=== PATIENT | female | born 1945 | race Two or more races ===

== ENCOUNTER 2022-10-05 07:23 | Inpatient (IN) | payer MEDICARE ==
[~2022-10-05] VITALS: Ht 152.4 cm; Wt 48.2 kg
[~2022-10-05 07:23] MED LIST: ACET-3385 PO; AMOX1TAB16 PO; CLON-595 PO; HYDR10TA31 PO; LABE100T51 PO; METF-1211 PO
[2022-10-05] MEDS ORDERED: GABA-1216 PO (07:35)
[2022-10-05] MEDS ORDERED: INSULIN SQ (07:35)
[2022-10-05] MEDS ORDERED: FAMO20 PO (07:35)
[2022-10-05] MEDS ORDERED: SODIUM CHLORIDE 0.9% 1,000 ML IV ONE ×2 (07:45→10:45)
[2022-10-05] MEDS ORDERED: ONDANSETRON HCL 4 MG/2 ML VIAL IVP ONE (07:45)
[2022-10-05] MEDS ORDERED: MORPHINE SULFATE 2 MG/ML SYRINGE IVP ONE ×2 (07:45→19:45)
[2022-10-05 08:06] LABS: BASOPHILS % (AUTO) 0.6 % (0.0-2.0); CREATININE 1.09 mg/dL (0.60-1.30); EOSINOPHILS % (AUTO) 0.2 % (1.0-6.0); HEMOGLOBIN 9.1 g/dL (12.0-16.0); LYMPHOCYTES # (AUTO) 1.1 K/uL (1.0-4.8); MEAN CORPUSCULAR HEMOGLOBIN 23.4 pg (26.0-34.0); MEAN CORPUSCULAR HGB CONC 31.2 G/dL (31.0-37.0); MEAN CORPUSCULAR VOLUME 75 fL (80-100); MONOCYTES # (AUTO) 0.3 K/uL (0.1-1.0); MONOCYTES % (AUTO) 2.2 % (2.0-9.0); NEUTROPHILS # (AUTO) 13.7 K/uL (1.8-7.7); PLATELET COUNT (AUTO) 435 K/uL (150-450); POTASSIUM 4.2 mmol/L (3.5-5.1); RED BLOOD CELL COUNT(AUTO) 3.87 MIL/uL (4.00-5.20); RED CELL DISTRIBUTION WIDTH 20.4 % (11.5-14.5)
[2022-10-05 08:13] LABS: ALBUMIN 3.7 g/dL (3.4-5.0); BILIRUBIN,TOTAL 0.3 mg/dL (0.1-1.0); TOTAL PROTEIN, SERUM 8.3 g/dL (6.4-8.2)
[2022-10-05 09:41] LABS: APPEARANCE,URINE HAZY (CLEAR); BILIRUBIN,URINE NEGATIVE (NEGATIVE); GLUCOSE, URINE (UA) NEGATIVE (NEGATIVE); KETONES,URINE NEGATIVE (NEGATIVE); LEUKOCYTE ESTERASE ,URINE LARGE (NEGATIVE); NITRATE,URINE NEGATIVE (NEGATIVE); OCCULT BLOOD,URINE TRACE (NEGATIVE); PROTEIN,URINE 300-600,SEE CONFIRM mg/dL (NEGATIVE); SPECIFIC GRAVITIY, URINE 1.017 (1.003-1.030); UROBILINOGEN,URINE <=1.0 mg/dL (<=1.0)
[2022-10-05 09:50] LABS: RBC,URINE 0-2 /HPF (0-2); SULFOSALICYLIC ACID,URINE 4+ (Negative); WBC,URINE 51-100 /HPF (0-5)
[2022-10-05 09:51] LABS: BACTERIA,URINE Few /HPF (None Seen)
[2022-10-05] MEDS ORDERED: MetroNIDAZOLE 500 MG/NACL 100 ML IV ONE (10:00)
[2022-10-05] MEDS ORDERED: PIPERACILLIN/TAZO 3.375 GM/D5W 50 ML IV ONE (10:00)
[2022-10-05] MEDS ORDERED: MORPHINE SULFATE 2 MG/ML SYRINGE IVP PRN ×2 (10:45→13:30)
[2022-10-05] MEDS ORDERED: ONDANSETRON HCL 4 MG/2 ML VIAL IVP PRN (10:45)
[2022-10-05 11:45] LABS: COVID AG,FIA SOURCE NASOPHARYNGEAL
[2022-10-05] MEDS ORDERED: BISACODYL 10 MG RECTAL RECTAL SUPPOSITORY PR PRN (13:30)
[2022-10-05] MEDS ORDERED: DEXTROSE 50%-WATER 25 GM/50 ML SYRINGE IVP PRN (13:30)
[2022-10-05] MEDS ORDERED: ZOLPIDEM TARTRATE 5 MG TABLET PO PRN (13:30)
[2022-10-05] MEDS ORDERED: MAGNESIUM HYDROXIDE SUSPENSION 30 ML UDCUP PO PRN (13:30)
[2022-10-05] MEDS: HydrALAZINE HCL 20 MG/ML VIAL IVP PRN (14:55)
[2022-10-05] MEDS: HEPARIN SODIUM,PORCINE 5,000 UNITS/ML VIAL SQ SCH ×2 (16:39→22:32)
[2022-10-05] MEDS: ONDANSETRON HCL 4 MG/2 ML VIAL IVP PRN (16:49)
[2022-10-05 18:46] VITALS: BP 161/124
[2022-10-05 20:02] VITALS: BP 217/120
[2022-10-05] MEDS ORDERED: HydrALAZINE HCL 20 MG/ML VIAL IVP ONE (20:30)
[2022-10-05] MEDS: INSULIN LISPRO 100 UNITS/ML SQ PRN (20:39)
[2022-10-05] MEDS: DOCUSATE SODIUM 100 MG CAPSULE PO SCH (21:00)
[2022-10-05 21:26] LABS: GLUCOSE,POINT OF CARE 158 MG/DL (70-110)
[2022-10-05 23:51] VITALS: BP 156/94
[2022-10-06 04:58] VITALS: BP 168/109
[2022-10-06 06:01] LABS: GLUCOMETER DEV NAME(LOC) 5S.1B; GLUCOSE,POINT OF CARE 157 MG/DL (70-110)
[2022-10-06 06:53] LABS: BASOPHILS % (AUTO) 0.2 % (0.0-2.0); EOSINOPHILS % (AUTO) 0 % (1.0-6.0); HEMATOCRIT 31.1 % (36-46); HEMOGLOBIN 9.8 g/dL (12.0-16.0); LYMPHOCYTES # (AUTO) 0.9 K/uL (1.0-4.8); LYMPHOCYTES % (AUTO) 4.8 % (22.0-44.0); MEAN CORPUSCULAR HEMOGLOBIN 24.1 pg (26.0-34.0); MEAN CORPUSCULAR HGB CONC 31.5 G/dL (31.0-37.0); MEAN CORPUSCULAR VOLUME 76 fL (80-100); MONOCYTES # (AUTO) 0.5 K/uL (0.1-1.0); MONOCYTES % (AUTO) 2.9 % (2.0-9.0); NEUTROPHILS # (AUTO) 17.1 K/uL (1.8-7.7); PLATELET COUNT (AUTO) 474 K/uL (150-450); RED BLOOD CELL COUNT(AUTO) 4.07 MIL/uL (4.00-5.20); RED CELL DISTRIBUTION WIDTH 20.8 % (11.5-14.5)
[2022-10-06 07:00] LABS: NEUTROPHILS % (AUTO) 92.1 % (40.0-70.0)
[2022-10-06 07:10] LABS: CALCIUM, TOTAL 9.7 mg/dL (8.8-10.5); CREATININE 1.02 mg/dL (0.60-1.30); POTASSIUM 4.5 mmol/L (3.5-5.1)
[2022-10-06 08:09] VITALS: BP 165/89
[2022-10-06] MEDS: HEPARIN SODIUM,PORCINE 5,000 UNITS/ML VIAL SQ SCH ×3 (08:46→23:33)
[2022-10-06] MEDS: HYDROCODONE/ACETAMINOPHEN 5-325 MG TABLET PO PRN ×3 (08:46→17:59)
[2022-10-06] MEDS: PANTOPRAZOLE SODIUM 40 MG DR TABLET PO SCH (08:46)
[2022-10-06] MEDS: DOCUSATE SODIUM 100 MG CAPSULE PO SCH ×2 (08:47→21:00)
[2022-10-06] MEDS: HydrALAZINE HCL 20 MG/ML VIAL IVP PRN ×2 (08:49→20:20)
[2022-10-06 12:38] VITALS: BP 166/93
[2022-10-06 16:08] VITALS: BP 156/108
[2022-10-06] MEDS: MORPHINE SULFATE 2 MG/ML SYRINGE IVP PRN ×2 (17:06→21:45)
[2022-10-06 19:06] LABS: GLUCOMETER DEV NAME(LOC) 5S.1B; GLUCOSE,POINT OF CARE 135 MG/DL (70-110)
[2022-10-06 19:44] VITALS: BP 184/90
[2022-10-06 20:00] VITALS: BP 172/85
[2022-10-06 21:11] LABS: GLUCOMETER DEV NAME(LOC) 5S.1B; GLUCOSE,POINT OF CARE 115 MG/DL (70-110)
[2022-10-07 00:02] VITALS: BP 172/85
[2022-10-07] MEDS: MORPHINE SULFATE 2 MG/ML SYRINGE IVP PRN ×3 (02:44→20:15)
[2022-10-07] MEDS: HydrALAZINE HCL 20 MG/ML VIAL IVP PRN ×3 (05:16→17:38)
[2022-10-07 05:18] VITALS: BP 190/93
[2022-10-07 06:34] LABS: BASOPHILS % (AUTO) 0.7 % (0.0-2.0); EOSINOPHILS % (AUTO) 0 % (1.0-6.0); HEMOGLOBIN 9.6 g/dL (12.0-16.0); LYMPHOCYTES # (AUTO) 1.7 K/uL (1.0-4.8); LYMPHOCYTES % (AUTO) 12.6 % (22.0-44.0); MEAN CORPUSCULAR HEMOGLOBIN 23.5 pg (26.0-34.0); MEAN CORPUSCULAR HGB CONC 30.9 G/dL (31.0-37.0); MEAN CORPUSCULAR VOLUME 76 fL (80-100); MONOCYTES # (AUTO) 0.5 K/uL (0.1-1.0); MONOCYTES % (AUTO) 4.1 % (2.0-9.0); NEUTROPHILS # (AUTO) 10.9 K/uL (1.8-7.7); NEUTROPHILS % (AUTO) 82.6 % (40.0-70.0); PLATELET COUNT (AUTO) 474 K/uL (150-450); RED BLOOD CELL COUNT(AUTO) 4.07 MIL/uL (4.00-5.20); RED CELL DISTRIBUTION WIDTH 20.7 % (11.5-14.5)
[2022-10-07 07:00] LABS: CALCIUM, TOTAL 9.4 mg/dL (8.8-10.5); CREATININE 1.33 mg/dL (0.60-1.30); POTASSIUM 3.8 mmol/L (3.5-5.1)
[2022-10-07 07:01] LABS: GLUCOMETER DEV NAME(LOC) 5S.1B; GLUCOSE,POINT OF CARE 124 MG/DL (70-110)
[2022-10-07 07:54] VITALS: BP 155/82
[2022-10-07] MEDS: HEPARIN SODIUM,PORCINE 5,000 UNITS/ML VIAL SQ SCH ×2 (08:11→15:24)
[2022-10-07] MEDS: PANTOPRAZOLE SODIUM 40 MG DR TABLET PO SCH (08:12)
[2022-10-07] MEDS: DOCUSATE SODIUM 100 MG CAPSULE PO SCH (08:12)
[2022-10-07] MEDS ORDERED: SODIUM CHLORIDE 0.9% 1,000 ML IV ONE (10:45)
[2022-10-07] MEDS ORDERED: BISACODYL 10 MG RECTAL RECTAL SUPPOSITORY PR SCH (10:45)
[2022-10-07 11:16] VITALS: BP 195/99
[2022-10-07 11:36] LABS: GLUCOMETER DEV NAME(LOC) 5N.1C; GLUCOSE,POINT OF CARE 116 MG/DL (70-110)
[2022-10-07] MEDS: LABETALOL HCL 100 MG TABLET PO SCH ×2 (13:50→20:14)
[2022-10-07 15:10] VITALS: BP 172/97
[2022-10-07] MEDS ORDERED: AmLODIPine BESYLATE 10 MG TABLET PO ONE (18:00)
[2022-10-07 20:01] LABS: GLUCOMETER DEV NAME(LOC) 5N.1C; GLUCOSE,POINT OF CARE 110 MG/DL (70-110)
[2022-10-07 20:11] LABS: GLUCOMETER DEV NAME(LOC) 5N.1C; GLUCOSE,POINT OF CARE 212 MG/DL (70-110)
[2022-10-07 20:19] VITALS: BP 176/79
[2022-10-08 00:13] VITALS: BP 155/86
[2022-10-08] MEDS: HEPARIN SODIUM,PORCINE 5,000 UNITS/ML VIAL SQ SCH ×3 (00:22→16:00)
[2022-10-08 04:38] VITALS: BP 167/84
[2022-10-08 07:20] LABS: BASOPHILS % (AUTO) 0.2 % (0.0-2.0); EOSINOPHILS % (AUTO) 0.5 % (1.0-6.0); HEMOGLOBIN 8.7 g/dL (12.0-16.0); LYMPHOCYTES # (AUTO) 1.2 K/uL (1.0-4.8); MEAN CORPUSCULAR HEMOGLOBIN 23.3 pg (26.0-34.0); MEAN CORPUSCULAR HGB CONC 30.9 G/dL (31.0-37.0); MEAN CORPUSCULAR VOLUME 75 fL (80-100); MONOCYTES # (AUTO) 0.7 K/uL (0.1-1.0); MONOCYTES % (AUTO) 5.8 % (2.0-9.0); NEUTROPHILS % (AUTO) 83.5 % (40.0-70.0); PLATELET COUNT (AUTO) 442 K/uL (150-450); RED BLOOD CELL COUNT(AUTO) 3.72 MIL/uL (4.00-5.20); RED CELL DISTRIBUTION WIDTH 20.5 % (11.5-14.5)
[2022-10-08 07:37] VITALS: BP 166/92
[2022-10-08 07:37] LABS: CREATININE 1.21 mg/dL (0.60-1.30); POTASSIUM 3.1 mmol/L (3.5-5.1)
[2022-10-08] MEDS: PANTOPRAZOLE SODIUM 40 MG DR TABLET PO SCH (09:23)
[2022-10-08] MEDS: LABETALOL HCL 100 MG TABLET PO SCH ×2 (09:23→21:57)
[2022-10-08] MEDS: MORPHINE SULFATE 2 MG/ML SYRINGE IVP PRN (11:10)
[2022-10-08] MEDS: HydrALAZINE HCL 20 MG/ML VIAL IVP PRN (11:11)
[2022-10-08 11:27] VITALS: BP 191/94
[2022-10-08] MEDS: INSULIN LISPRO 100 UNITS/ML SQ PRN ×2 (11:53→18:19)
[2022-10-08 15:26] VITALS: BP 166/82
[2022-10-08 16:21] LABS: CALCIUM, TOTAL 9.5 mg/dL (8.8-10.5); CREATININE 1.21 mg/dL (0.60-1.30); POTASSIUM 3.3 mmol/L (3.5-5.1)
[2022-10-08] MEDS ORDERED: POTASSIUM CHLORIDE 10% 40 MEQ/30 ML LIQUID UDCUP PO ONE (18:45)
[2022-10-08] MEDS: HYDROCODONE/ACETAMINOPHEN 5-325 MG TABLET PO PRN (19:58)
[2022-10-08 20:20] VITALS: BP 233/113
[2022-10-08 20:26] LABS: GLUCOMETER DEV NAME(LOC) 5N.1C; GLUCOSE,POINT OF CARE 178 MG/DL (70-110)
[2022-10-08 20:26] LABS: GLUCOMETER DEV NAME(LOC) 5N.1C; GLUCOSE,POINT OF CARE 231 MG/DL (70-110)
[2022-10-08 20:26] LABS: GLUCOMETER DEV NAME(LOC) 5N.1C; GLUCOSE,POINT OF CARE 144 MG/DL (70-110)
[2022-10-08] MEDS ORDERED: NITROGLYCERIN 2% (1 GM=INCH) OINTMENT PACKET TP PRN (22:15)
[2022-10-08 22:41] LABS: GLUCOMETER DEV NAME(LOC) 5N.1C; GLUCOSE,POINT OF CARE 135 MG/DL (70-110)
[2022-10-09] VITALS (7 sets, daily range): BP systolic 141–200; BP diastolic 63–101
[2022-10-09] MEDS: HEPARIN SODIUM,PORCINE 5,000 UNITS/ML VIAL SQ SCH ×3 (00:29→16:29)
[2022-10-09] MEDS: HYDROCODONE/ACETAMINOPHEN 5-325 MG TABLET PO PRN ×3 (00:37→14:48)
[2022-10-09] MEDS: HydrALAZINE HCL 20 MG/ML VIAL IVP PRN (04:58)
[2022-10-09] MEDS: ONDANSETRON HCL 4 MG/2 ML VIAL IVP PRN (08:15)
[2022-10-09] MEDS: LABETALOL HCL 100 MG TABLET PO SCH ×3 (08:16→21:15)
[2022-10-09] MEDS: PANTOPRAZOLE SODIUM 40 MG DR TABLET PO SCH (08:16)
[2022-10-09] MEDS: MORPHINE SULFATE 2 MG/ML SYRINGE IVP PRN ×2 (08:16→21:32)
[2022-10-09 10:34] LABS: CALCIUM, TOTAL 8.8 mg/dL (8.8-10.5); CREATININE 1.34 mg/dL (0.60-1.30); POTASSIUM 4.1 mmol/L (3.5-5.1)
[2022-10-09] MEDS ORDERED: METOCLOPRAMIDE HCL 5 MG/ML 2 ML VIAL IVP PRN (11:30)
[2022-10-09] MEDS ORDERED: SODIUM CHLORIDE 0.9% 1,000 ML IV ONE (12:15)
[2022-10-09 22:41] LABS: GLUCOMETER DEV NAME(LOC) 5S.1B; GLUCOSE,POINT OF CARE 141 MG/DL (70-110)
[2022-10-10 00:06] VITALS: BP 157/77
[2022-10-10] MEDS: HydrALAZINE HCL 20 MG/ML VIAL IVP PRN ×2 (04:16→08:39)
[2022-10-10 04:42] VITALS: BP 171/78
[2022-10-10 08:15] VITALS: BP 169/74
[2022-10-10] MEDS: LABETALOL HCL 100 MG TABLET PO SCH ×2 (08:38→20:18)
[2022-10-10] MEDS: PANTOPRAZOLE SODIUM 40 MG DR TABLET PO SCH (08:39)
[2022-10-10] MEDS: ClonazePAM 1 MG TABLET PO SCH (08:39)
[2022-10-10] MEDS: HEPARIN SODIUM,PORCINE 5,000 UNITS/ML VIAL SQ SCH ×3 (08:39→15:44)
[2022-10-10 12:11] VITALS: BP 148/73
[2022-10-10] MEDS: MORPHINE SULFATE 2 MG/ML SYRINGE IVP PRN ×2 (14:24→18:10)
[2022-10-10 15:04] VITALS: BP 155/76
[2022-10-10 19:51] VITALS: BP 169/84
[2022-10-10 22:31] LABS: GLUCOMETER DEV NAME(LOC) 5N.1C; GLUCOSE,POINT OF CARE 92 MG/DL (70-110)
[2022-10-11] VITALS (7 sets, daily range): BP systolic 162–184; BP diastolic 76–93
[2022-10-11] MEDS: MORPHINE SULFATE 2 MG/ML SYRINGE IVP PRN ×3 (00:01→14:19)
[2022-10-11] MEDS: HEPARIN SODIUM,PORCINE 5,000 UNITS/ML VIAL SQ SCH ×4 (00:01→23:24)
[2022-10-11 00:26] LABS: GLUCOMETER DEV NAME(LOC) 5N.1C; GLUCOSE,POINT OF CARE 94 MG/DL (70-110)
[2022-10-11] MEDS: PANTOPRAZOLE SODIUM 40 MG DR TABLET PO SCH (08:41)
[2022-10-11] MEDS: LABETALOL HCL 100 MG TABLET PO SCH ×2 (08:42→20:12)
[2022-10-11] MEDS: ClonazePAM 1 MG TABLET PO SCH (08:42)
[2022-10-11] MEDS ORDERED: MINERAL OIL 133 ML ENEMA PR ONE (10:30)
[2022-10-11] MEDS: HydrALAZINE HCL 20 MG/ML VIAL IVP PRN ×3 (11:03→23:24)
[2022-10-11 12:01] LABS: GLUCOMETER DEV NAME(LOC) 5S.1B; GLUCOSE,POINT OF CARE 90 MG/DL (70-110)
[2022-10-11] MEDS: INSULIN LISPRO 100 UNITS/ML SQ PRN (20:15)
[2022-10-11 20:21] LABS: GLUCOMETER DEV NAME(LOC) 5N.1C; GLUCOSE,POINT OF CARE 213 MG/DL (70-110)
[2022-10-11] MEDS: ACETAMINOPHEN 325 MG TABLET PO PRN (23:25)
[2022-10-12 00:29] VITALS: BP 141/68
[2022-10-12 04:40] VITALS: BP 138/67
[2022-10-12] MEDS: MORPHINE SULFATE 2 MG/ML SYRINGE IVP PRN ×2 (05:38→21:17)
[2022-10-12 05:51] LABS: GLUCOMETER DEV NAME(LOC) 5S.1B; GLUCOSE,POINT OF CARE 116 MG/DL (70-110)
[2022-10-12 08:00] VITALS: BP 188/97
[2022-10-12] MEDS: HEPARIN SODIUM,PORCINE 5,000 UNITS/ML VIAL SQ SCH ×3 (08:00→23:30)
[2022-10-12] MEDS: ClonazePAM 1 MG TABLET PO SCH (09:00)
[2022-10-12] MEDS: PANTOPRAZOLE SODIUM 40 MG DR TABLET PO SCH (09:00)
[2022-10-12] MEDS: LABETALOL HCL 100 MG TABLET PO SCH ×2 (09:00→21:16)
[2022-10-12 09:11] LABS: BASOPHILS % (AUTO) 0.4 % (0.0-2.0); HEMATOCRIT 29.4 % (36-46); LYMPHOCYTES # (AUTO) 1.4 K/uL (1.0-4.8); LYMPHOCYTES % (AUTO) 13.1 % (22.0-44.0); MEAN CORPUSCULAR HEMOGLOBIN 23.5 pg (26.0-34.0); MEAN CORPUSCULAR HGB CONC 30.7 G/dL (31.0-37.0); MEAN CORPUSCULAR VOLUME 77 fL (80-100); MONOCYTES # (AUTO) 0.7 K/uL (0.1-1.0); MONOCYTES % (AUTO) 6.7 % (2.0-9.0); NEUTROPHILS # (AUTO) 8.5 K/uL (1.8-7.7); NEUTROPHILS % (AUTO) 77.8 % (40.0-70.0); PLATELET COUNT (AUTO) 376 K/uL (150-450); RED BLOOD CELL COUNT(AUTO) 3.84 MIL/uL (4.00-5.20)
[2022-10-12] MEDS: HydrALAZINE HCL 20 MG/ML VIAL IVP PRN (09:15)
[2022-10-12 09:20] LABS: CALCIUM, TOTAL 9.5 mg/dL (8.8-10.5); CREATININE 1.05 mg/dL (0.60-1.30); POTASSIUM 4.2 mmol/L (3.5-5.1)
[2022-10-12] MEDS ORDERED: METO5TAB95 PO (10:11)
[2022-10-12] MEDS ORDERED: BISA10SU11 PR (10:11)
[2022-10-12 11:20] VITALS: BP 171/100
[2022-10-12] MEDS ORDERED: MINERAL OIL 133 ML ENEMA PR ONE (12:00)
[2022-10-12] MEDS ORDERED: LACTULOSE 20 GM/30 ML SOLUTION UDCUP PO PRN (12:00)
[2022-10-12 14:21] LABS: GLUCOMETER DEV NAME(LOC) 5S.1B; GLUCOSE,POINT OF CARE 131 MG/DL (70-110)
[2022-10-12] MEDS ORDERED: LEVO-72 PO (14:37)
[2022-10-12] MEDS ORDERED: METR500 PO (14:37)
[2022-10-12 15:33] VITALS: BP 144/83
[2022-10-12 19:56] LABS: GLUCOMETER DEV NAME(LOC) 5N.1C; GLUCOSE,POINT OF CARE 133 MG/DL (70-110)
[2022-10-12 20:38] VITALS: BP 178/89
[2022-10-12] MEDS ORDERED: RINGERS SOLUTION,LACTATED 1,000 ML IV ONE (23:00)
[2022-10-13 00:11] LABS: GLUCOMETER DEV NAME(LOC) 5N.1C; GLUCOSE,POINT OF CARE 145 MG/DL (70-110)
[2022-10-13 04:28] VITALS: BP 177/84
[2022-10-13] MEDS: HydrALAZINE HCL 20 MG/ML VIAL IVP PRN (04:47)
[2022-10-13] MEDS: INSULIN LISPRO 100 UNITS/ML SQ PRN (06:12)
[2022-10-13 07:50] VITALS: BP 145/86
[2022-10-13] MEDS: ClonazePAM 1 MG TABLET PO SCH (08:17)
[2022-10-13] MEDS: HEPARIN SODIUM,PORCINE 5,000 UNITS/ML VIAL SQ SCH ×2 (08:17→16:35)
[2022-10-13] MEDS: LABETALOL HCL 100 MG TABLET PO SCH ×2 (08:17→21:19)
[2022-10-13] MEDS: HYDROCODONE/ACETAMINOPHEN 5-325 MG TABLET PO PRN (08:17)
[2022-10-13] MEDS: PANTOPRAZOLE SODIUM 40 MG DR TABLET PO SCH (08:17)
[2022-10-13 11:34] VITALS: BP 188/92
[2022-10-13] MEDS ORDERED: HydrALAZINE HCL 10 MG TABLET PO ONE (12:30)
[2022-10-13] MEDS: SENNOSIDES 8.6 MG TABLET PO ONE ×2 (12:30→16:40)
[2022-10-13] MEDS: METOCLOPRAMIDE HCL 5 MG/ML 2 ML VIAL IVP SCH ×2 (13:30→17:00)
[2022-10-13 15:10] VITALS: BP 149/75
[2022-10-13] MEDS: BISACODYL 10 MG RECTAL RECTAL SUPPOSITORY PR SCH (16:37)
[2022-10-13] MEDS: SIMETHICONE 80 MG CHEWABLE TABLET CHEW SCH ×2 (16:38→21:19)
[2022-10-13 20:28] VITALS: BP 150/80
[2022-10-13 22:31] LABS: GLUCOMETER DEV NAME(LOC) 5S.1B; GLUCOSE,POINT OF CARE 124 MG/DL (70-110)
[2022-10-13 22:31] LABS: GLUCOMETER DEV NAME(LOC) 5S.1B; GLUCOSE,POINT OF CARE 164 MG/DL (70-110)
[2022-10-13 22:31] LABS: GLUCOMETER DEV NAME(LOC) 5S.1B; GLUCOSE,POINT OF CARE 127 MG/DL (70-110)
[2022-10-13 22:31] LABS: GLUCOMETER DEV NAME(LOC) 5S.1B; GLUCOSE,POINT OF CARE 193 MG/DL (70-110)
[2022-10-13 23:48] VITALS: BP 151/75
[2022-10-14] MEDS: HEPARIN SODIUM,PORCINE 5,000 UNITS/ML VIAL SQ SCH ×4 (00:09→23:50)
[2022-10-14] MEDS: METOCLOPRAMIDE HCL 5 MG/ML 2 ML VIAL IVP SCH ×5 (00:09→23:50)
[2022-10-14 05:10] VITALS: BP 152/74
[2022-10-14 07:06] LABS: ALBUMIN 2.8 g/dL (3.4-5.0); BILIRUBIN,TOTAL 0.3 mg/dL (0.1-1.0); CREATININE 1.14 mg/dL (0.60-1.30); TOTAL PROTEIN, SERUM 6.8 g/dL (6.4-8.2)
[2022-10-14 07:17] LABS: CALCIUM, TOTAL 9.1 mg/dL (8.8-10.5)
[2022-10-14 07:46] LABS: GLUCOMETER DEV NAME(LOC) 5S.1B; GLUCOSE,POINT OF CARE 117 MG/DL (70-110)
[2022-10-14 09:00] VITALS: BP 163/66
[2022-10-14] MEDS: PANTOPRAZOLE SODIUM 40 MG DR TABLET PO SCH (09:14)
[2022-10-14] MEDS: SIMETHICONE 80 MG CHEWABLE TABLET CHEW SCH ×4 (09:14→20:56)
[2022-10-14] MEDS: ClonazePAM 1 MG TABLET PO SCH (09:14)
[2022-10-14] MEDS: LABETALOL HCL 100 MG TABLET PO SCH ×2 (09:17→20:56)
[2022-10-14] MEDS: BISACODYL 10 MG RECTAL RECTAL SUPPOSITORY PR SCH (09:17)
[2022-10-14] MEDS ORDERED: LANSOPRAZOLE 15 MG SOLUBLE TABLET NG SCH (10:00)
[2022-10-14 11:56] VITALS: BP 169/81
[2022-10-14 12:26] LABS: GLUCOMETER DEV NAME(LOC) 5S.1B; GLUCOSE,POINT OF CARE 137 MG/DL (70-110)
[2022-10-14 17:04] VITALS: BP 165/83
[2022-10-14 18:52] LABS: GLUCOMETER DEV NAME(LOC) 5N.1C; GLUCOSE,POINT OF CARE 118 MG/DL (70-110)
[2022-10-14 19:52] VITALS: BP 154/79
[2022-10-14] MEDS: HYDROCODONE/ACETAMINOPHEN 5-325 MG TABLET PO PRN (20:56)
[2022-10-14 23:22] LABS: GLUCOMETER DEV NAME(LOC) 5N.1C; GLUCOSE,POINT OF CARE 123 MG/DL (70-110)
[2022-10-14 23:32] VITALS: BP 133/64
[2022-10-15 04:24] VITALS: BP 155/81
[2022-10-15] MEDS: METOCLOPRAMIDE HCL 5 MG/ML 2 ML VIAL IVP SCH (06:10)
[2022-10-15 07:17] VITALS: BP 152/78
[2022-10-15] MEDS: PANTOPRAZOLE SODIUM 40 MG/VIAL IVP SCH (08:58)
[2022-10-15] MEDS: BISACODYL 10 MG RECTAL RECTAL SUPPOSITORY PR SCH (08:58)
[2022-10-15] MEDS: SIMETHICONE 80 MG CHEWABLE TABLET CHEW SCH ×4 (08:58→21:22)
[2022-10-15] MEDS: LABETALOL HCL 100 MG TABLET PO SCH ×2 (08:59→21:22)
[2022-10-15] MEDS: ClonazePAM 1 MG TABLET PO SCH (08:59)
[2022-10-15] MEDS: HEPARIN SODIUM,PORCINE 5,000 UNITS/ML VIAL SQ SCH ×3 (08:59→23:06)
[2022-10-15 10:51] LABS: GLUCOMETER DEV NAME(LOC) 5N.1C; GLUCOSE,POINT OF CARE 90 MG/DL (70-110)
[2022-10-15 11:35] VITALS: BP 148/75
[2022-10-15 14:49] VITALS: BP 168/79
[2022-10-15 17:16] LABS: GLUCOMETER DEV NAME(LOC) 5S.1B; GLUCOSE,POINT OF CARE 119 MG/DL (70-110)
[2022-10-15 20:03] VITALS: BP 172/80
[2022-10-15 23:56] VITALS: BP 164/72
[2022-10-16 04:55] VITALS: BP 161/66
[2022-10-16 07:39] VITALS: BP 149/70
[2022-10-16] MEDS: HEPARIN SODIUM,PORCINE 5,000 UNITS/ML VIAL SQ SCH ×2 (08:35→16:31)
[2022-10-16] MEDS: ClonazePAM 1 MG TABLET PO SCH (08:38)
[2022-10-16] MEDS: LABETALOL HCL 100 MG TABLET PO SCH ×2 (08:42→20:41)
[2022-10-16] MEDS: SIMETHICONE 80 MG CHEWABLE TABLET CHEW SCH ×4 (08:43→20:41)
[2022-10-16] MEDS: PANTOPRAZOLE SODIUM 40 MG/VIAL IVP SCH (08:43)
[2022-10-16 08:51] LABS: GLUCOMETER DEV NAME(LOC) 5N.1C; GLUCOSE,POINT OF CARE 135 MG/DL (70-110)
[2022-10-16 08:51] LABS: GLUCOMETER DEV NAME(LOC) 5S.1B; GLUCOSE,POINT OF CARE 128 MG/DL (70-110)
[2022-10-16] MEDS: BISACODYL 10 MG RECTAL RECTAL SUPPOSITORY PR SCH (08:59)
[2022-10-16 11:01] VITALS: BP 144/71
[2022-10-16] MEDS: INSULIN LISPRO 100 UNITS/ML SQ PRN ×2 (12:04→17:47)
[2022-10-16 15:23] VITALS: BP 140/75
[2022-10-16 20:35] VITALS: BP 135/77
[2022-10-16 22:16] LABS: GLUCOMETER DEV NAME(LOC) 5N.1C; GLUCOSE,POINT OF CARE 153 MG/DL (70-110)
[2022-10-17] VITALS (8 sets, daily range): BP systolic 124–225; BP diastolic 60–107
[2022-10-17] MEDS: HEPARIN SODIUM,PORCINE 5,000 UNITS/ML VIAL SQ SCH ×4 (00:08→23:37)
[2022-10-17 06:21] LABS: GLUCOMETER DEV NAME(LOC) 5S.1B; GLUCOSE,POINT OF CARE 149 MG/DL (70-110)
[2022-10-17] MEDS: ClonazePAM 1 MG TABLET PO SCH (08:56)
[2022-10-17] MEDS: PANTOPRAZOLE SODIUM 40 MG/VIAL IVP SCH (08:56)
[2022-10-17] MEDS: LABETALOL HCL 100 MG TABLET PO SCH ×2 (08:57→20:18)
[2022-10-17] MEDS: SIMETHICONE 80 MG CHEWABLE TABLET CHEW SCH ×4 (08:57→20:15)
[2022-10-17] MEDS: BISACODYL 10 MG RECTAL RECTAL SUPPOSITORY PR SCH (09:00)
[2022-10-17] MEDS: ACETAMINOPHEN 325 MG TABLET PO PRN (11:36)
[2022-10-17] MEDS: INSULIN LISPRO 100 UNITS/ML SQ PRN ×2 (12:18→21:26)
[2022-10-17] MEDS: MORPHINE SULFATE 2 MG/ML SYRINGE IVP PRN ×2 (14:33→19:40)
[2022-10-17] MEDS: HYDROCODONE/ACETAMINOPHEN 5-325 MG TABLET PO PRN (15:26)
[2022-10-17] MEDS: HydrALAZINE HCL 20 MG/ML VIAL IVP PRN (15:38)
[2022-10-17] MEDS: ONDANSETRON HCL 4 MG/2 ML VIAL IVP PRN (17:27)
[2022-10-17] MEDS ORDERED: AmLODIPine BESYLATE 10 MG TABLET PO ONE (17:30)
[2022-10-17 22:26] LABS: GLUCOMETER DEV NAME(LOC) 5S.1B; GLUCOSE,POINT OF CARE 206 MG/DL (70-110)
[2022-10-17 22:26] LABS: GLUCOMETER DEV NAME(LOC) 5N.1C; GLUCOSE,POINT OF CARE 160 MG/DL (70-110)
[2022-10-17 22:26] LABS: GLUCOMETER DEV NAME(LOC) 5N.1C; GLUCOSE,POINT OF CARE 201 MG/DL (70-110)
[2022-10-18 00:07] VITALS: BP 116/70
[2022-10-18 04:59] VITALS: BP 132/70
[2022-10-18 06:58] LABS: BASOPHILS % (AUTO) 0.4 % (0.0-2.0); EOSINOPHILS % (AUTO) 1.5 % (1.0-6.0); HEMATOCRIT 28.1 % (36-46); HEMOGLOBIN 8.9 g/dL (12.0-16.0); LYMPHOCYTES # (AUTO) 1.9 K/uL (1.0-4.8); MEAN CORPUSCULAR HEMOGLOBIN 24.2 pg (26.0-34.0); MEAN CORPUSCULAR HGB CONC 31.8 G/dL (31.0-37.0); MEAN CORPUSCULAR VOLUME 76 fL (80-100); MONOCYTES # (AUTO) 0.6 K/uL (0.1-1.0); MONOCYTES % (AUTO) 6.6 % (2.0-9.0); NEUTROPHILS % (AUTO) 69.5 % (40.0-70.0); PLATELET COUNT (AUTO) 360 K/uL (150-450); RED BLOOD CELL COUNT(AUTO) 3.69 MIL/uL (4.00-5.20); RED CELL DISTRIBUTION WIDTH 20.8 % (11.5-14.5)
[2022-10-18 07:10] LABS: ALBUMIN 2.5 g/dL (3.4-5.0); BILIRUBIN,TOTAL 0.2 mg/dL (0.1-1.0); CALCIUM, TOTAL 9.5 mg/dL (8.8-10.5); CREATININE 1.27 mg/dL (0.60-1.30); POTASSIUM 4.7 mmol/L (3.5-5.1); TOTAL PROTEIN, SERUM 6.5 g/dL (6.4-8.2)
[2022-10-18 07:14] VITALS: BP 130/64
[2022-10-18] MEDS: BISACODYL 10 MG RECTAL RECTAL SUPPOSITORY PR SCH (09:00)
[2022-10-18] MEDS: HEPARIN SODIUM,PORCINE 5,000 UNITS/ML VIAL SQ SCH ×2 (09:18→15:30)
[2022-10-18] MEDS: SIMETHICONE 80 MG CHEWABLE TABLET CHEW SCH ×4 (09:18→20:07)
[2022-10-18] MEDS: LABETALOL HCL 100 MG TABLET PO SCH ×2 (09:18→20:26)
[2022-10-18] MEDS: PANTOPRAZOLE SODIUM 40 MG/VIAL IVP SCH (09:18)
[2022-10-18] MEDS: ClonazePAM 1 MG TABLET PO SCH (09:18)
[2022-10-18] MEDS: HYDROCODONE/ACETAMINOPHEN 5-325 MG TABLET PO PRN ×2 (10:43→20:10)
[2022-10-18 11:40] VITALS: BP 137/74
[2022-10-18] MEDS: MORPHINE SULFATE 2 MG/ML SYRINGE IVP PRN (12:10)
[2022-10-18] MEDS: INSULIN LISPRO 100 UNITS/ML SQ PRN ×2 (12:21→18:18)
[2022-10-18 15:25] VITALS: BP 140/75
[2022-10-18] MEDS: ACETAMINOPHEN 325 MG TABLET PO PRN (15:37)
[2022-10-18 19:51] VITALS: BP 117/50
[2022-10-18 20:56] LABS: GLUCOMETER DEV NAME(LOC) 5S.1B; GLUCOSE,POINT OF CARE 140 MG/DL (70-110)
[2022-10-18 20:56] LABS: GLUCOMETER DEV NAME(LOC) 5S.1B; GLUCOSE,POINT OF CARE 179 MG/DL (70-110)
[2022-10-18 20:56] LABS: GLUCOMETER DEV NAME(LOC) 5N.1C; GLUCOSE,POINT OF CARE 163 MG/DL (70-110)
[2022-10-19 00:30] VITALS: BP 132/68
[2022-10-19 05:27] VITALS: BP 128/56
[2022-10-19 06:44] LABS: BASOPHILS % (AUTO) 0.7 % (0.0-2.0); EOSINOPHILS % (AUTO) 2.1 % (1.0-6.0); HEMATOCRIT 27.5 % (36-46); HEMOGLOBIN 8.6 g/dL (12.0-16.0); LYMPHOCYTES # (AUTO) 1.9 K/uL (1.0-4.8); LYMPHOCYTES % (AUTO) 19.7 % (22.0-44.0); MEAN CORPUSCULAR HEMOGLOBIN 23.9 pg (26.0-34.0); MEAN CORPUSCULAR HGB CONC 31.5 G/dL (31.0-37.0); MEAN CORPUSCULAR VOLUME 76 fL (80-100); MONOCYTES # (AUTO) 0.7 K/uL (0.1-1.0); MONOCYTES % (AUTO) 6.6 % (2.0-9.0); NEUTROPHILS % (AUTO) 70.9 % (40.0-70.0); PLATELET COUNT (AUTO) 356 K/uL (150-450); RED BLOOD CELL COUNT(AUTO) 3.62 MIL/uL (4.00-5.20); RED CELL DISTRIBUTION WIDTH 21.7 % (11.5-14.5)
[2022-10-19 07:06] LABS: ALBUMIN 2.5 g/dL (3.4-5.0); BILIRUBIN,TOTAL 0.1 mg/dL (0.1-1.0); CALCIUM, TOTAL 9.8 mg/dL (8.8-10.5); CREATININE 1.2 mg/dL (0.60-1.30); TOTAL PROTEIN, SERUM 6.5 g/dL (6.4-8.2)
[2022-10-19 07:39] VITALS: BP 151/76
[2022-10-19] MEDS: BISACODYL 10 MG RECTAL RECTAL SUPPOSITORY PR SCH (08:29)
[2022-10-19] MEDS: ClonazePAM 1 MG TABLET PO SCH (08:32)
[2022-10-19] MEDS: SIMETHICONE 80 MG CHEWABLE TABLET CHEW SCH ×3 (08:32→16:22)
[2022-10-19] MEDS: LABETALOL HCL 100 MG TABLET PO SCH (08:32)
[2022-10-19] MEDS: PANTOPRAZOLE SODIUM 40 MG/VIAL IVP SCH (08:48)
[2022-10-19] MEDS: HEPARIN SODIUM,PORCINE 5,000 UNITS/ML VIAL SQ SCH ×3 (08:48→16:22)
[2022-10-19] MEDS: HYDROCODONE/ACETAMINOPHEN 5-325 MG TABLET PO PRN (09:28)
[2022-10-19 11:19] VITALS: BP 168/68
[2022-10-19] MEDS: MORPHINE SULFATE 2 MG/ML SYRINGE IVP PRN ×2 (12:01→16:24)
[2022-10-19 15:35] VITALS: BP 174/74
[2022-10-19 16:52] VITALS: BP 176/92
[2022-10-19] MEDS: HydrALAZINE HCL 20 MG/ML VIAL IVP PRN (16:52)
[2022-10-19 22:22] LABS: GLUCOMETER DEV NAME(LOC) 5S.1B; GLUCOSE,POINT OF CARE 137 MG/DL (70-110)
[2022-10-19 22:22] LABS: GLUCOMETER DEV NAME(LOC) 5S.1B; GLUCOSE,POINT OF CARE 131 MG/DL (70-110)
[2022-10-19 22:22] LABS: GLUCOMETER DEV NAME(LOC) 5S.1B; GLUCOSE,POINT OF CARE 178 MG/DL (70-110)
== END 2022-10-19 19:00 | DRG 854 ==
LOC: EMS 07:37 → AHU 14:16 → 5S 16:34
PROVIDERS: ADMIT Internal Medicine; ATTEND Internal Medicine
PROC: 0D9670Z Drainage of Stomach with Drainage Device, Via Natural or Artificial Opening (ICD-10-PCS; 2022-10-05)
PROC: 0FT44ZZ Resection of Gallbladder, Percutaneous Endoscopic Approach (ICD-10-PCS; principal; 2022-10-06)
PROC: 0D9670Z Drainage of Stomach with Drainage Device, Via Natural or Artificial Opening (ICD-10-PCS; 2022-10-09)
DX: A41.9 Sepsis, unspecified organism (principal); K56.600 Partial intestinal obstruction, unspecified as to cause; K57.92 Diverticulitis of intestine, part unspecified, without perforation or abscess without bleeding; K56.7 Ileus, unspecified; N39.0 Urinary tract infection, site not specified; K80.64 Calculus of gallbladder and bile duct with chronic cholecystitis without obstruction; K94.29 Other complications of gastrostomy; Z20.822 Contact with and (suspected) exposure to COVID-19; K52.9 Noninfective gastroenteritis and colitis, unspecified; R13.10 Dysphagia, unspecified; I16.0 Hypertensive urgency; E11.65 Type 2 diabetes mellitus with hyperglycemia; D64.9 Anemia, unspecified; I10 Essential (primary) hypertension; K21.9 Gastro-esophageal reflux disease without esophagitis; Z79.899 Other long term (current) drug therapy; Z85.3 Personal history of malignant neoplasm of breast; Z90.13 Acquired absence of bilateral breasts and nipples; Z79.4 Long term (current) use of insulin; Z91.041 Radiographic dye allergy status
CPT/HCPCS: 71045; 74018; 74022; 74176; 80048; 80053; 81001; 81002; 82962; 83690; 84484; 85025; 87086; 87186; 92610; 93005; 97163; 97166; 97535; 99291; C9113; G0378; J0360; J1644; J2270; J2405; J2543; J2765; J3490; J7030; J7120; Q9967; 36415-L1; 36415-TC